=== PATIENT | male | born 1960 | race African-American/Black ===

== ENCOUNTER 2016-10-12 19:59 | Observation (INO) | payer BC ==
[~2016-10-12] VITALS: Ht 182.9 cm; Wt 107.9 kg
[~2016-10-12 19:59] MED LIST: ATORVASTATIN CA20 MG PO; CANDESARTAN CIL32 MG PO; EPLERENONE50 MG PO; FENTANYL1 EAC5 TD; FUROSEMIDE20 MG PO; GABAPENTIN300 MG PO; GLIPIZIDE XL5 MG PO; LABETALOL HCL200 MG PO; LANTUS 3 M100 UNITS1 SC; NIFEDIPINE ER90 MG PO; OXYCODONE-APAP1 EAC6 PO; TIZANIDINE HCL4 MG PO
[2016-10-12 20:32] LABS: HEMATOCRIT 39.3 % (38.0-50.0); MCH 26.8 PG (29.0-34.0); MCHC 34.9 G/DL (30.0-36.0); MCV 76.9 FL (86-99); MEAN PLAT.VOLUME 9.4 uM^3 (9.0-12.4); PLATELET COUNT 273 K/uL (156-360); RBC DIS.WIDTH-CV 13.6 % (11.8-14.6); RBC DIS.WIDTH-SD 38.3 % (39-53); RED BLOOD COUNT 5.11 M/uL (4.00-5.50); WHITE BLOOD COUNT 8.6 K/uL (4.1-10.2)
[2016-10-12 20:47] LABS: CHLORIDE 100 mEq/L (99-109); POTASSIUM 3.1 mEq/L (3.7-5.4); SODIUM 140 mEq/L (136-147)
[2016-10-12 20:48] LABS: GLUCOSE 113 mg/dL (70-99)
[2016-10-12 20:50] LABS: ANION GAP 13 MEQ/L (2-14)
[2016-10-12 20:52] LABS: GFR ESTIMATE (CALCULATED) > 59 mL/min/
[2016-10-12 20:53] LABS: UREA NITROGEN (BUN) 16 mg/dL (9-23)
[2016-10-12 20:58] LABS: TROP-I INTERPRETATION NEGATIVE; TROPONIN-I < 0.01 ng/mL (0.0-0.30)
[2016-10-12] MEDS ORDERED: FENTANYL1 EAC1 TD (22:59)
[2016-10-12] MEDS ORDERED: PERCOCET 10/1 TABLET PO (23:00)
[2016-10-12] MEDS ORDERED: HYGROTON25 MG PO (23:03)
[2016-10-13 02:33] VITALS: BP 158/66
[2016-10-13 04:39] LABS: TOTAL BILIRUBIN 0.9 mg/dL (0.0-1.0)
[2016-10-13 04:40] LABS: ALKALINE PHOSPHATASE 75 IU/L (3-129)
[2016-10-13 04:41] LABS: TROP-I INTERPRETATION NEGATIVE; TROPONIN-I < 0.01 ng/mL (0.0-0.30)
[2016-10-13 04:42] LABS: DIRECT BILIRUBIN 0.3 mg/dL (0.0-0.3)
[2016-10-13 04:43] LABS: LIPASE 42 U/L (1.0-51.0)
[2016-10-13 05:21] LABS: CHLORIDE 102 mEq/L (99-109); POTASSIUM 3.3 mEq/L (3.7-5.4); SODIUM 139 mEq/L (136-147)
[2016-10-13 05:23] LABS: GLUCOSE 139 mg/dL (70-99)
[2016-10-13 05:24] LABS: ANION GAP 11 MEQ/L (2-14)
[2016-10-13 05:27] LABS: GFR ESTIMATE (CALCULATED) > 59 mL/min/
[2016-10-13 05:28] LABS: UREA NITROGEN (BUN) 16 mg/dL (9-23)
[2016-10-13 07:45] VITALS: BP 172/87
[2016-10-13 07:57] LABS: POINT-OF-CARE METER ID UU13113831
[2016-10-13 10:44] LABS: TROP-I INTERPRETATION NEGATIVE; TROPONIN-I < 0.01 ng/mL (0.0-0.30)
[2016-10-13 11:42] VITALS: BP 143/71
[2016-10-13 12:07] LABS: POINT-OF-CARE METER ID UU13113831
[2016-10-13 13:45] LABS: ANION GAP 7 MEQ/L (2-14); CHLORIDE 103 MEQ/L (99-109); GFR ESTIMATE (CALCULATED) > 59 mL/min/; POTASSIUM 3.8 MEQ/L (3.7-5.4); SAMPLE HEMOLYSIS CHECK 0; SAMPLE ICTERIC CHECK 0; SAMPLE LIPEMIA CHECK 0; SODIUM 140 MEQ/L (136-147); UREA NITROGEN (BUN) 16 mg/dL (9-23)
[2016-10-13 13:49] LABS: GLUCOSE 79 mg/dL (70-99)
[2016-10-13] MEDS ORDERED: K-DUR20 MEQ PO (14:18)
[2016-10-13 15:07] VITALS: BP 104/58
[2016-10-13] MEDS ORDERED: ZOFRAN4 MG PO (17:09)
== END 2016-10-13 16:20 | disposition home or self-care (01) ==
LOC: EME 19:59 → EDOF 10-13 01:21 → 5WEST 10-13 02:27
PROVIDERS: Family Medicine; Hospitalist; Internal Medicine Cardiovascular Disease
DX: R07.9 Chest pain, unspecified (principal); N17.9 Acute kidney failure, unspecified; E87.6 Hypokalemia; E11.65 Type 2 diabetes mellitus with hyperglycemia; E78.5 Hyperlipidemia, unspecified; G89.29 Other chronic pain; R53.83 Other fatigue; Z88.8 Allergy status to other drugs, medicaments and biological substances; Z91.013 Allergy to seafood; R94.31 Abnormal electrocardiogram [ECG] [EKG]
CPT/HCPCS: 71020; 80048; 80048 91; 80076; 82948; 83690; 84484; 85027; 93005; 99281; 99285; G0378; J1650; J1815; J2405; J7030

== ENCOUNTER 2017-01-08 08:05 | Inpatient (IN) | payer BC, OTHER ==
[~2017-01-08] VITALS: Ht 182.9 cm; Wt 106.1 kg
[~2017-01-08 08:05] MED LIST changes: +BASAGLAR K100 UNIT/1 SC; +FENTANYL1 EAC1 TD; +HYGROTON25 MG PO; +K-DUR20 MEQ PO; -LANTUS 3 M100 UNITS1 SC; +PERCOCET 10/1 TABLET PO; +ZOFRAN4 MG PO
[2017-01-08 08:53] LABS: HEMATOCRIT 38.8 % (38.0-50.0); MCH 26.8 PG (29.0-34.0); MCHC 34.8 G/DL (30.0-36.0); MCV 77.1 FL (86-99); MEAN PLAT.VOLUME 9.7 uM^3 (9.0-12.4); PLATELET COUNT 241 K/uL (156-360); RBC DIS.WIDTH-CV 14.4 % (11.8-14.6); RBC DIS.WIDTH-SD 40.1 % (39-53); RED BLOOD COUNT 5.03 M/uL (4.00-5.50); WHITE BLOOD COUNT 7.4 K/uL (4.1-10.2)
[2017-01-08 09:00] LABS: CHLORIDE 103 mEq/L (99-109); POTASSIUM 3.4 mEq/L (3.7-5.4); SODIUM 140 mEq/L (136-147)
[2017-01-08 09:02] LABS: GLUCOSE 150 mg/dL (70-99)
[2017-01-08 09:03] LABS: ANION GAP 9 MEQ/L (2-14)
[2017-01-08 09:06] LABS: GFR ESTIMATE (CALCULATED) > 59 mL/min/
[2017-01-08 09:07] LABS: UREA NITROGEN (BUN) 15 mg/dL (9-23)
[2017-01-08 09:12] LABS: TROP-I INTERPRETATION NEGATIVE; TROPONIN-I < 0.01 ng/mL (0.0-0.30)
[2017-01-08 11:15] VITALS: BP 155/94
[2017-01-08 12:59] LABS: POINT-OF-CARE METER ID UU14162513
[2017-01-08 14:04] LABS: Estimated Average Glucose 131 mg/dL (70-123)
[2017-01-08 14:23] LABS: HDL CHOLESTEROL 26 MG/DL (Desirable>=40); LDL CHOLESTEROL 97 mg/dL (Desirable<100); NON-HDL CHOLESTEROL 123 mg/dL (Desirable<160); TOTAL CHOLESTEROL 149 mg/dL (Desirable<200); TRIGLYCERIDES 132 MG/DL (Normal: <150)
[2017-01-08 14:26] LABS: TROP-I INTERPRETATION NEGATIVE; TROPONIN-I < 0.01 ng/mL (0.0-0.30)
[2017-01-08 14:30] LABS: HEMOGLOBIN A1c (GLYCOHEMOGLOB) 6.2 % HGB (Below 5.7)
[2017-01-08] MEDS ORDERED: VIIBRYD20 MG PO (14:43)
[2017-01-08 16:00] VITALS: BP 131/74
[2017-01-08 17:19] LABS: POINT-OF-CARE METER ID UU14162513
[2017-01-08 19:57] LABS: TROP-I INTERPRETATION NEGATIVE; TROPONIN-I < 0.01 ng/mL (0.0-0.30)
[2017-01-08 20:00] VITALS: BP 138/82
[2017-01-08 23:22] VITALS: BP 101/53
[2017-01-08 23:36] LABS: POINT-OF-CARE METER ID UU14162513
[2017-01-09 04:22] VITALS: BP 109/75
[2017-01-09 08:15] LABS: POINT-OF-CARE METER ID UU14162513
[2017-01-09 10:35] VITALS: BP 150/72
[2017-01-09 11:51] VITALS: BP 176/88
[2017-01-09 12:12] LABS: POINT-OF-CARE METER ID UU13113700
[2017-01-09 16:44] VITALS: BP 132/73
[2017-01-09 17:45] LABS: POINT-OF-CARE METER ID UU13113700
[2017-01-09 20:49] VITALS: BP 121/67
[2017-01-09 21:57] LABS: POINT-OF-CARE METER ID UU13113831
[2017-01-10 00:23] VITALS: BP 107/66
[2017-01-10 03:43] VITALS: BP 111/55
[2017-01-10 05:55] LABS: EOSINOPHIL (%) 1.9 % (0-5); EOSINOPHIL COUNT 0.1 K/uL (0-0.3); HEMATOCRIT 35.3 % (38.0-50.0); IMMATURE GRANULOCYTE (%) 0.1 % (0.0-0.7); INSTRUMENT ABS NEUTROPHIL CT 2.8 K/uL; LYMPHOCYTE COUNT 3.4 K/uL (1.0-2.8); MCH 26.3 PG (29.0-34.0); MCHC 33.7 G/DL (30.0-36.0); MCV 77.9 FL (86-99); MEAN PLAT.VOLUME 9.7 uM^3 (9.0-12.4); MONOCYTE (%) 9.2 % (3-12); MONOCYTE COUNT 0.6 K/uL (0-0.8); NEUTROPHIL (%) 39.4 % (45-76); NEUTROPHIL COUNT 2.8 K/uL (1.8-6.4); PLATELET COUNT 246 K/uL (156-360); RBC DIS.WIDTH-CV 14.3 % (11.8-14.6); RBC DIS.WIDTH-SD 40.4 % (39-53); RED BLOOD COUNT 4.53 M/uL (4.00-5.50)
[2017-01-10 06:18] LABS: ANION GAP 10 MEQ/L (2-14); CHLORIDE 101 MEQ/L (99-109); GFR ESTIMATE (CALCULATED) > 59 mL/min/; POTASSIUM 3.4 MEQ/L (3.7-5.4); SAMPLE HEMOLYSIS CHECK 0; SAMPLE ICTERIC CHECK 0; SAMPLE LIPEMIA CHECK 0; SODIUM 141 MEQ/L (136-147)
[2017-01-10 06:23] LABS: GLUCOSE 95 mg/dL (70-99); UREA NITROGEN (BUN) 28 mg/dL (9-23)
[2017-01-10 08:14] LABS: POINT-OF-CARE METER ID UU13113700
[2017-01-10 08:29] VITALS: BP 138/73
[2017-01-10 12:30] VITALS: BP 121/59
[2017-01-10 12:31] LABS: POINT-OF-CARE METER ID UU13113700
[2017-01-10 16:00] VITALS: BP 118/62
[2017-01-10 17:17] LABS: POINT-OF-CARE METER ID UU13113700
[2017-01-10 19:47] VITALS: BP 137/65
[2017-01-10 21:44] LABS: POINT-OF-CARE METER ID UU14162513
[2017-01-11] VITALS: BP 108/62
[2017-01-11 03:32] VITALS: BP 118/74
[2017-01-11 05:48] LABS: EOSINOPHIL (%) 3.5 % (0-5); EOSINOPHIL COUNT 0.2 K/uL (0-0.3); HEMATOCRIT 34.7 % (38.0-50.0); IMMATURE GRANULOCYTE (%) 0.3 % (0.0-0.7); INSTRUMENT ABS NEUTROPHIL CT 2.4 K/uL; LYMPHOCYTE COUNT 2.5 K/uL (1.0-2.8); MCH 26.5 PG (29.0-34.0); MEAN PLAT.VOLUME 9.4 uM^3 (9.0-12.4); MONOCYTE (%) 10.8 % (3-12); MONOCYTE COUNT 0.6 K/uL (0-0.8); NEUTROPHIL (%) 41.4 % (45-76); NEUTROPHIL COUNT 2.4 K/uL (1.8-6.4); PLATELET COUNT 226 K/uL (156-360); RBC DIS.WIDTH-CV 14.3 % (11.8-14.6); RBC DIS.WIDTH-SD 40.9 % (39-53); RED BLOOD COUNT 4.45 M/uL (4.00-5.50); WHITE BLOOD COUNT 5.8 K/uL (4.1-10.2)
[2017-01-11 06:10] LABS: PROTHROMBIN TIME 11.4 SEC (10.2-12.9)
[2017-01-11 06:13] LABS: ANION GAP 7 MEQ/L (2-14); CHLORIDE 103 MEQ/L (99-109); GFR ESTIMATE (CALCULATED) > 59 mL/min/; GLUCOSE 120 mg/dL (70-99); MAGNESIUM 2.2 mg/dl (1.3-2.7); POTASSIUM 3.8 MEQ/L (3.7-5.4); PTT 29.9 SEC (25-37); SAMPLE HEMOLYSIS CHECK 0; SAMPLE ICTERIC CHECK 0; SAMPLE LIPEMIA CHECK 0; SODIUM 140 MEQ/L (136-147); UREA NITROGEN (BUN) 25 mg/dL (9-23)
[2017-01-11 07:59] VITALS: BP 134/65
[2017-01-11 08:33] LABS: POINT-OF-CARE METER ID UU13113831
[2017-01-11 12:56] LABS: POINT-OF-CARE METER ID UU13113819
== END 2017-01-11 17:45 | disposition home or self-care (01) | DRG 287 ==
LOC: EME 08:05 → EDOF 10:17 → ENRESERV 10:19 → 5WEST 11:14 → ENPENDDIS 01-11 → 5WEST 01-11 10:10
PROVIDERS: Emergency Medicine; Family Medicine; Hospitalist; Internal Medicine
DX: R07.89 Other chest pain (principal); E87.6 Hypokalemia; E78.5 Hyperlipidemia, unspecified; G47.30 Sleep apnea, unspecified; I10 Essential (primary) hypertension; E66.9 Obesity, unspecified; Z68.31 Body mass index [BMI] 31.0-31.9, adult; Z87.891 Personal history of nicotine dependence; G89.29 Other chronic pain; I35.1 Nonrheumatic aortic (valve) insufficiency
CPT/HCPCS: 71010; 80048; 80061; 82948; 83036; 83735; 84484; 85025; 85027; 85610; 85730; 90686; 93005; 93306; 99281; 99285; C1769; C1887; G0378; J1644; J1650; J1815; J2250; J3010